=== PATIENT | male | born 1945 | race Caucasian/White ===

== ENCOUNTER 2024-06-14 13:30 | Day surgery (SDC) | payer MEDICARE ==
[2024-06-14] MEDS ORDERED: Sodium Chloride 0.9(Preservative Free) 10 ML IJ ONE (13:31)
[2024-06-14] MEDS ORDERED: LIDOCAINE HCL 1% AMPUL 5 ML IJ ONE (13:31)
[2024-06-14] MEDS ORDERED: Decadron 4 MG INJ IV ONE (13:31)
[2024-06-14] MEDS ORDERED: Lactated Ringers 1,000 ML IV ONE (16:08)
--- NOTE | 2024-06-14 16:26 | XRAY ---
Indication: Left L4-S1 transforaminal CHAI. Intraoperative fluoroscopy provided for 37 seconds. 5 digital spot images submitted for interpretation demonstrates posterior needle tips projecting over the expected left L4 and L5 nerve roots. Small amount of contrast injected for needle tip placement. Correlate with intraoperative findings/report.
--- NOTE | 2024-06-14 17:13 | XRAY ---
37 seconds of fluoroscopy was used in surgery for a left L4-S1 transforaminal CHAI.
== END 2024-06-14 16:25 | disposition home or self-care (01) ==
LOC: SDC-PAIN 13:30
PROVIDERS: ATTEND Psychiatry & Neurology Pain Medicine
DX: M54.16 Radiculopathy, lumbar region (principal)
CPT/HCPCS: 64483; 64484; 72100; 77002; J1100; Q9966